=== PATIENT | male | born 1985 | race Caucasian/White ===

== ENCOUNTER → 2018-03-09 | Outpatient (CLI) | payer SELFPAY ==
[~2018-03-09] MED LIST: BUPR1 PO; HYDACE5 PO; PENVK500 PO; RXHYDACE PO
[2018-03-09 17:45] LABS: BASOPHILS ABSOLUTE AUTO 0.04 K/mm3 (0.00-0.23); BASOPHILS PERCENT AUTO 1 % (0-2); EOSINOPHILS ABSOLUTE AUTO 0.14 K/mm3 (0.00-0.68); EOSINOPHILS PERCENT AUTO 2 % (0-6); Hematocrit 45.9 % (37.0-53.0); Hemoglobin 14.9 g/dL (13.5-17.5); IMMATURE GRAN ABSOLUTE AUTO 0.02 K/mm3 (0.00-0.10); IMMATURE GRAN PERCENT AUTO 0 % (0-1); LYMPHOCYTES ABSOLUTE AUTO 1.31 K/mm3 (0.84-5.20); LYMPHOCYTES PERCENT AUTO 20 % (21-46); MONOCYTES ABSOLUTE AUTO 0.44 K/mm3 (0.16-1.47); MONOCYTES PERCENT AUTO 7 % (4-13); Mean Corpuscular HGB 27.9 pg (26.0-34.0); Mean Corpuscular HGB Conc 32.5 g/dL (31.5-36.5); Mean Corpuscular Volume 86 fL (80-100); Mean Platelet Volume 8.8 fL (9.1-12.4); NEUTROPHILS ABSOLUTE AUTO 4.63 K/mm3 (1.96-9.15); NEUTROPHILS PERCENT AUTO 70 % (41-73); Platelet Count 369 K/mm3 (150-400); RDW Coefficient Variation 12.1 % (11.7-14.2); RDW Standard Deviation 38.4 fL (35.1-46.3); Red Blood Cell Count 5.34 M/mm3 (4.30-5.90); White Blood Cell Count 6.58 K/mm3 (4.00-11.30)
[2018-03-09 19:11] LABS: Alanine Aminotransfer (ALT/SGP 24 U/L (12-78); Alk Phos 89 U/L (50-136); Anion Gap 6 mmol/L (6-16); Aspartate Aminotrans (AST/SGOT 21 U/L (12-37); Bilirubin, Total 0.2 mg/dL (0.1-1.0); Blood Urea Nitrogen 12 mg/dL (8-24); Bun/Creatinine Ratio 14.8 (12.0-20.0); CO2, Blood 27 mmol/L (21-32); Chloride, Blood 105 mmol/L (98-108); Creatinine, Blood 0.81 mg/dL (0.60-1.20); Globulin, Blood 4.1 g/dL (2.2-4.0); Glomerular Filtration Rate >60 (60-); Glucose, Blood 106 mg/dL (70-99); Potassium, Blood 4.8 mmol/L (3.5-5.5); Sodium, Blood 138 mmol/L (136-145); Total Protein, Blood 8.1 g/dL (6.4-8.2)
[2018-03-11 02:16] LABS: HIV SCREEN 4TH GENERATION WRFX Non Reactive (Non Reactive)
[2018-03-11 04:48] LABS: HBSAG SCREEN Negative (Negative); HEP B CORE AB, TOT Negative (Negative); HEP C VIRUS AB 0.1 (0.0-0.9)
== END | disposition home or self-care (01) ==
LOC: LAB SHORT 15:30 → LAB 15:30
PROVIDERS: Nurse Practitioner Family
DX: F11.20 Opioid dependence, uncomplicated (principal)
CPT/HCPCS: 80053; 85025; 86704; 86708; 86803; 87340; 87389

== ENCOUNTER 2018-12-15 20:30 | Emergency (ER) | payer OTHER ==
[~2018-12-15] VITALS: Ht 182.9 cm; Wt 86.2 kg
[~2018-12-15 20:30] MED LIST changes: +Bactrim Ds Tab1 EACH PO; +Cleocin HCl150 MG PO; +Percocet 5-3251 EACH PO
[2018-12-15] MEDS ORDERED: Percocet 5-3251 EACH PO (21:59)
[2018-12-15] MEDS ORDERED: Monodox100 MG PO (21:59)
[2018-12-15] MEDS ORDERED: CEPH500 PO (21:59)
== END 2018-12-15 22:12 | disposition home or self-care (01) ==
LOC: ER 20:30
DX: L03.211 Cellulitis of face (principal); L03.811 Cellulitis of head [any part, except face]; F17.200 Nicotine dependence, unspecified, uncomplicated
CPT/HCPCS: 99282; A9270-GY

== ENCOUNTER 2021-03-23 01:02 | Emergency (ER) | payer OTHER ==
[~2021-03-23] VITALS: Ht 182.9 cm; Wt 86.2 kg
[~2021-03-23 01:02] MED LIST changes: +CEPH500 PO; +Monodox100 MG PO
[2021-03-23] MEDS ORDERED: CEPH500 PO ×2 (02:06→02:08)
[2021-03-23] MEDS ORDERED: Bactrim Ds Tab1 EACH PO ×2 (02:06→02:08)
[2021-03-23] MEDS ORDERED: IBUP600 PO (02:08)
== END 2021-03-23 02:18 | disposition home or self-care (01) ==
LOC: ER 01:02
DX: L03.114 Cellulitis of left upper limb (principal); F11.90 Opioid use, unspecified, uncomplicated; Z87.891 Personal history of nicotine dependence
CPT/HCPCS: 96372; 99283-25; A9270; J0696